=== PATIENT | female | born 1955 | race Caucasian/White ===

== ENCOUNTER 2024-10-01 09:13 | Inpatient (IN) | payer MEDICARE ==
[~2024-10-01] VITALS: Ht 162.6 cm; Wt 59.4 kg
--- NOTE | 2024-10-01 10:14 | ED.PDOC ---
GI ASSESSMENT HPI Comments 69-year-old female presents with a chief complaint of abdominal pain, vomiting, nausea, and diarrhea. Patient states that her pain is localized to her suprapubic abdomen region, nonradiating, describes as cramping, and rates her pain a 7/10. Patient mentions that she has been taking OTC remedies such as pedialyte, Tums, and Charcoal Pills, but states that none of them have helped alleviate her symptoms. Chief Complaint: Nausea/Vomiting Time Seen by MD: 10:07 Primary Care Provider: MANOLO Reviewed Notes: Medications, Allergies Allergies: Coded Allergies: Mercury (Verified Allergy, Unknown, 10/01/24) Information Source: Patient Mode of Arrival: Ambulatory Timing: Days Duration: Since onset Prehospital treatment: None Quality: Cramping Vomitus: Food Particles Stool: Watery, Brown Severity: Moderate Recent: None Recent Hx of: None Pain Location: Suprapubic Associated sign and symptoms: Nausea, Vomiting, Diarrhea, Abdominal Pain Past Medical History PAST MEDICAL HISTORY: Denies Surgical History: Denies all surgeries 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 Family History Family History: Reviewed,noncontributory to illness Social History Smoker: Non-Smoker Alcohol: Denies ETOH Use Drugs: Denies Drug Use Lives In: Home Constitutional: denies: chills, diaphoresis, fatigue, fever, malaise, sweats, weakness, others EENTM: denies: blurred vision, double vision, ear bleeding, ear discharge, ear drainage, ear pain, ear ringing, eye pain, eye redness, hearing loss, mouth pain, mouth swelling, nasal discharge, nose bleeding, nose congestion, nose pain, photophobia, tearing, throat pain, throat swelling, voice changes, others Respiratory: denies: cough, hemoptysis, orthopnea, SOB at rest, shortness of breath, SOB with excertion, stridor, wheezing, others Cardiovascular: denies: chest pain, dizzy spells, diaphoresis, Dyspnea on exertion, edema, irregular heart beat, left arm pain, lightheadedness, palpitations, PND, syncope, others Gastrointestinal: reports: abdominal pain, diarrhea, nausea, vomiting; denies: abdomen distended, blood streaked bowels, constipated, dysphagia, difficulty swallowing, hematemesis, melena, poor appetite, poor fluid intake, rectal bleeding, rectal pain, others Genitourinary: denies: abnormal vagina bleeding, burning, dyspareunia, dysuria, flank pain, frequency, hematuria, incontinence, pain, , vagina discharge, urgency, others Neurological: denies: dizziness, fainting, headache, left sided numbness, left sided weakness, numbness, paresthesia, pre-existing deficit, right sided numb ness, right sided weakness, seizure, speech problems, tingling, tremors, weakness, others Musculoskeletal: denies: back pain, gout, joint pain, joint swelling, muscle pain, muscle stiffness, neck pain, others Integumetry: denies: bruises, change in color, change in hair/nails, dryness, laceration, lesions, lumps, rash, wounds, others Allergic/Immunocompromised: denies: Difficulty Healing, Frequent Infections, Hives, Itching, others Hematologic/Lymphatic: denies: anemia, blood clots, easy bleeding, easy bruising, swollen glands, others Endocrine: denies: excessive hunger, excessive sweating, excessive thirst, excessive urination, flushing, intolerance to cold, intolerance to heat, unexplained weight gain, unexplained weight loss, others Psychiatric: denies: anxiety, bipolar disorder, depression, hopeless, panic disorder, schizophrenia, sleepless, suicidal, others All Other Systems: Reviewed and Negative Physical Exam General Appearance: No Apparent Distress, Normal HEENT: Normal ENT Inspection, Pharynx Normal, TMs Normal Neck: Full Range of Motion, Non-Tender, Normal, Normal Inspection Respiratory: Chest Non-Tender, Lungs Clear, No Accessory Muscle Use, No Respiratory Distress, Normal Breath Sounds Cardiovascular: No Edema, No JVD, No Murmur, No Gallop, Normal Peripheral Pulses, Regular Rate/Rhythm Breast Exam: Deferred Gastrointestinal: No Organomegaly, Non Tender, No Pulsatile Mass, Normal Bowel Sounds, Soft Genitalia: Deferred Pelvic: Deferred Rectal: Deferred Extremities: No calf tenderness, Normal capillary refill, Normal inspection, Normal range of motion, Non-tender, No pedal edema Musculoskeletal : Apperance: Normal Neurologic: Alert, 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 Was a procedure done?: No GI differential Dx Differential Diagnosis: Cholecystitis, Diverticular disease, Gastritis/PUD, Gastroenteritis, Pancreatitis, UTI, Dehydration, Electrolyte Imbalance, Viral, Mass X-Ray, Labs, Meds, VS Vital Signs Date Time Temp Pulse Resp B/P (MAP) Pulse Ox O2 Delivery O2 Flow Rate FiO2 10/01/24 13:05 97.9 75 20 150/85 (106) 95 97.9 10/01/24 09:23 97.9 91 18 144/90 (108) 97 97.9 Lab Test 10/01/24 10:15 10/01/24 09:25 Range/Units White Blood Count 6.4 4.4-10.8 10^3/uL Red Blood Count 4.59 4.0-5.20 10^6/uL Hemoglobin 13.7 12.2-16.2 g/dL Hematocrit 40.9 36.0-46.0 % Mean Corpuscular Volume 89.2 80.0-100.0 fL Mean Corpuscular Hemoglobin 29.9 28.0-32.0 pg Mean Corpuscular Hemoglobin Concent 33.6 32.0-36.0 g/dL Red Cell Distribution Width 13.7 11.8-14.3 % Platelet Count 235 140-450 10^3/uL Mean Platelet Volume 8.4 6.9-10.8 fL Neutrophils (%) (Auto) 63.6 37.0-80.0 % Lymphocytes (%) (Auto) 27.8 10.0-50.0 % Monocytes (%) (Auto) 6.4 0.0-12.0 % Eosinophils (%) (Auto) 1.5 0.0-7.0 % Basophils (%) (Auto) 0.7 0.0-2.0 % Neutrophils # (Auto) 4.1 1.6-8.6 10 ^3/uL Lymphocytes # (Auto) 1.8 0.4-5.4 10 ^3/uL Monocytes # (Auto) 0.4 0-1.3 10 ^3/uL Eosinophils # (Auto) 0.1 0-0.8 10 ^3/uL Basophils # (Auto) 0 0-0.2 10 ^3/uL Nucleated Red Blood Cells 0.1 % Sodium Level 142 136-145 mmol/L Potassium Level 3.5 3.5-5.1 mmol/L Chloride Level 102 98-107 mmol/L Carbon Dioxide Level 32 H 20-31 mmol/L Anion Gap 8 5-15 Blood Urea Nitrogen 8 L 9-23 mg/dL Creatinine 0.75 0.550-1.02 mg/dL Glomerular Filtration Rate Calc 85 >90 mL/min BUN/Creatinine Ratio 10.7 10.0-20.0 Serum Glucose 147 H 74-106 mg/dL Calcium Level 10.3 8.7-10.4 mg/dL Troponin I High Sensitivity < 3 L </=34 ng/L Urine Color Yellow Yellow Urine Clarity Clear Clear Urine pH 6.0 5.0-9.0 Urine Specific [place] 1.019 1.001-1.035 Urine Protein Negative Negative Urine Ketones Negative Negative Urine Blood Negative Negative /uL Urine Nitrite Negative Negative Urine Bilirubin Negative Negative Urine Urobilinogen Normal Negative mg/dL Urine Leukocyte Esterase Negative Negative /uL Urine RBC 1 0 - 4 /hpf Urine Microscopic WBC 3 0-5 /HPF Urine Squamous Epithelial Cells Few <5 /hpf Urine Bacteria None seen None Seen /hpf Urine Mucus Few None Seen Urine Glucose Normal Normal mg/dL Current Medications Medications (Trade) Dose Ordered Sig/Jeannette Route Start Time Stop Time Status Last Admin Sodium Chloride 1,000 ml @ 1,000 mls/hr Q1H ONCE IV 10/01/24 10:15 10/01/24 11:14 DC 10/01/24 10:25 Ondansetron HCl (Zofran) 4 mg ONCE ONCE IV 10/01/24 10:15 10/01/24 10:16 DC 10/01/24 10:25 Famotidine (Pepcid Injection) 20 mg ONCE ONCE IV 10/01/24 10:15 10/01/24 10:16 DC 10/01/24 10:25 Time of 1ST Reevaluation: 10:37 Reevaluation 1ST: Unchanged Patient Education/Counseling: Diagnosis, Treatment Family Education/Counseling: No Family Present SEPSIS Sepsis Screen Date sepsis recognized/suspect: Oct 01, 2024 Time Sepsis recognized/suspect: 922 Recent Procedure: No On Antibiotic Therapy: No Respiratory Rate >20: No Heart Rate >90: Yes Temp<36 C (96.8 F) or >38.3 C: No SBP <90 or MAP <65 mmHG: No New Acute Mental Status Change: No Is the patient on CPAP, BIPAP,: No Physician Orders Ct Ab Pel With Iv Con Only (10/01/24 11:00) Vital Signs Date Time Temp Pulse Resp B/P (MAP) Pulse Ox O2 Delivery O2 Flow Rate FiO2 10/01/24 13:05 97.9 75 20 150/85 (106) 95 97.9 10/01/24 09:23 97.9 91 18 144/90 (108) 97 97.9 Laboratory Tests Test 10/01/24 10:15 White Blood Count 6.4 10^3/uL (4.4-10.8) Medications Medications Dose Ordered Sig/Jeannette Route Start Time Stop Time Status Last Admin Dose Admin Famotidine 20 mg ONCE ONCE IV 10/01/24 10:15 10/01/24 10:16 DC 10/01/24 10:25 Ondansetron HCl 4 mg ONCE ONCE IV 10/01/24 10:15 10/01/24 10:16 DC 10/01/24 10:25 Sodium Chloride 1,000 ml @ 1,000 mls/hr Q1H ONCE IV 10/01/24 10:15 10/01/24 11:14 DC 10/01/24 10:25 Departure 1 Departure Time of Disposition: 14:05 (Patient presented with abdominal pain that was concerning for possible appendicits, gastritis, cholecystitis, colitis, gastroenteritis, sbo, or orther possible surgical emergency. Data: 1. I ordered and reviewed the result of at least 3 labs including a CBC, BMP, and Urinalysis. 2. I independently interpreted the following tests: CT Abdoment and Pelvis is concerning for intra-abdominal mass .Risk:This patient has a high risk of morbidity due to further diagnostic testing or treatment and may suffer from an acute abdominal process disorder. Workup reveals abdominal mass as well as intractable nausea and vomiting l and patient should be admitted for further workup. and possible expert consultation. ) Impression: Primary Impression: Intractable abdominal pain Additional Impressions: Abdominal mass Qualified Codes: R19.07 - Generalized intra-abdominal and pelvic swelling, mass and lump Projectile vomiting with nausea Disposition: ADMITTED INPATIENT Admit to: Med Surg Condition: Serious Critical Care Note Critical Care Time?: No Stability Stability form required: No Heart Score Heart Score: Heart Score Response (Comments) Value History N/A 0 EKG N/A 0 Age N/A 0 Risk Factors N/A 0 Troponin N/A 0 Total 0 I personally scribed for LYNDA GEORGE MD ([email or web address]) on 10/01/24 at 10:13. Electronically submitted by Fabio Arndt ([email or web address]). LYNDA GEORGE MD Oct 01, 2024 10:13
[2024-10-01] MEDS: SODIUM CHLORIDE 0.9% 1,000 ML IV ONE (10:25)
[2024-10-01] MEDS: FAMOTIDINE (10MG/ML) 2ML VL IV ONE (10:25)
[2024-10-01] MEDS: ONDANSETRON HCL 4 MG/2 ML VIAL IV ONE (10:25)
[2024-10-01 10:39] LABS: Hematocrit 40.9 % (36.0-46.0); Hemoglobin 13.7 g/dL (12.2-16.2); Mean Corpuscular Hemoglobin 29.9 pg (28.0-32.0); Mean Corpuscular Volume 89.2 fL (80.0-100.0); Nucleated Red Blood Cells % 0.1 %
[2024-10-01 10:40] LABS: Anion Gap 8 (5-15); Carbon Dioxide 32 mmol/L (20-31); Chloride 102 mmol/L (98-107); Potassium 3.5 mmol/L (3.5-5.1); Sodium 142 mmol/L (136-145)
[2024-10-01 10:41] LABS: Calcium 10.3 mg/dL (8.7-10.4)
[2024-10-01 10:46] LABS: BUN/Creatinine Ratio 10.7 (10.0-20.0)
[2024-10-01 10:47] LABS: Urine Protein, UAD Negative (Negative)
[2024-10-01 10:47] LABS: Blood Urea Nitrogen 8 mg/dL (9-23); Glucose 147 mg/dL (74-106)
[2024-10-01] MEDS: IOHEXOL 300 MG/ML 100ML BOTTLE IJ ONE (11:20)
--- NOTE | 2024-10-01 12:58 | DVH ---
EXAM: CT CT AB PEL WITH IV CON ONLY HISTORY: lower abdominal pain COMPARISON: None TECHNIQUE: Helical CT images of the abdomen and pelvis were performed with 100 mL omnipaque 300 IV c ontrast. Sagittal and coronal reformatted images were obtained. This CT exam was performed using 1 or more of the following dose reduction techniques: Automated exposure control, adjustment of the mA an d/or kv according to patient size, or the use of iterative reconstruction techniques. Radiation Dose Information: CT Dose: CTDI volume is 5.75 mGy. Dose-length product is 314.36 mGy*cm FINDINGS: CT abdomen: The lung bases are clear. The heart is not enlarged. The gallbladder is surgically absent . The liver, spleen, pancreas, kidneys, and adrenal glands are unremarkable. No abdominal aortic aneu rysm or dissection. There are multiple enlarged periaortic retroperitoneal lymph nodes, the largest o f which measures 1.9 x 1.3 cm to the left of the abdominal aorta (image 37, series 2). CT pelvis: No abnormal bowel dilatation or free air. There is trace free fluid in the. There is wall thickening of the transverse colon, descending colon, sigmoid colon, and rectum. There are postoper ative changes resection of the ascending colon and appendix. There is right mid mesenteric partially calcified lobulated mass measuring 5.8 cm transverse x 2.9 cm AP x 6 cm longitudinal (image 39, serie s 2; images 24-32, series 601). There are multiple adjacent enlarged mesenteric lymph nodes. The urin gerardo bladder are unremarkable. IMPRESSION: 1. Postoperative changes of cholecystectomy and ascending colectomy. 2. Lobulated partially calcified 6 cm right mid mesenteric mass with adjacent mesenteric lymphadenopa thy. This appearance may be due to carcinoid tumor or desmoid tumor. Recommend surgical consultation . 3. Moody colitis. 4. Periaortic retroperitoneal lymphadenopathy may be reactive or metastatic in nature. 5. No evidence of bowel obstruction or other acute process in the abdomen or pelvis.
[2024-10-01 13:05] VITALS: BP 150/85; PULSE 75; RESP 20; TEMP 97.9; O2SAT 95
[2024-10-01] MEDS ORDERED: PIPERACILLIN-TAZOB 3.375GM 100 ML IV ONE (18:30)
[2024-10-01] MEDS ORDERED: LACTATED RINGER'S 1,000 ML IV ONE (18:30)
[2024-10-01] MEDS ORDERED: HYDROcodone-ACET 5/325MG TAB PO PRN (18:30)
[2024-10-01] MEDS ORDERED: ACETAMINOPHEN IV 1000 MG/100ML (10MG/ML) IV PRN (18:30)
[2024-10-01] MEDS ORDERED: ONDANSETRON HCL 4 MG/2 ML VIAL IV PRN (18:30)
--- NOTE | 2024-10-01 18:37 | DVHHP2 ---
Admitting Diagnosis: n/v History of Present Illness 69-year-old female presents with a chief complaint of abdominal pain, vomiting, nausea, and diarrhea. Patient states that her pain is localized to her suprapub ic abdomen region, nonradiating, describes as cramping, and rates her pain a 7/10. Patient mentions that she has been taking OTC remedies such as pedialyte, Tums, and Charcoal Pills, but states that none of them have helped alleviate her symptoms. 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 woman, sitting in bed. HEENT: AT/NC Heart: RRR Lung: CTA b/l Abd: soft, non-tender, non-distended Msk: no edema or cyanosis Neuro: Aox3, no focal deficit SEPSIS Sepsis Screen Date sepsis recognized/suspect: Oct 01, 2024 Time Sepsis recognized/suspect: 922 Recent Procedure: No On Antibiotic Therapy: No Respiratory Rate >20: No Heart Rate >90: Yes Temp<36 C (96.8 F) or >38.3 C: No SBP <90 or MAP <65 mmHG: No New Acute Mental Status Change: No Is the patient on CPAP, BIPAP,: No Physician Orders Ct Ab Pel With Iv Con Only (10/01/24 11:00) * Surgical Consult (10/01/24 ) Vital Signs Date Time Temp Pulse Resp B/P (MAP) Pulse Ox O2 Delivery O2 Flow Rate FiO2 10/01/24 13:05 97.9 75 20 150/85 (106) 95 97.9 10/01/24 09:23 97.9 91 18 144/90 (108) 97 97.9 Laboratory Tests Test 10/01/24 10:15 White Blood Count 6.4 10^3/uL (4.4-10.8) Medications Medications Dose Ordered Sig/Jeannette Route Start Time Stop Time Status Last Admin Dose Admin Famotidine 20 mg ONCE ONCE IV 10/01/24 10:15 10/01/24 10:16 DC 10/01/24 10:25 Ondansetron HCl 4 mg ONCE ONCE IV 10/01/24 10:15 10/01/24 10:16 DC 10/01/24 10:25 Sodium Chloride 1,000 ml @ 1,000 mls/hr Q1H ONCE IV 10/01/24 10:15 10/01/24 11:14 DC 10/01/24 10:25 Results Labs Test 10/01/24 10:15 10/01/24 09:25 Range/Units White Blood Count 6.4 4.4-10.8 10^3/uL Red Blood Count 4.59 4.0-5.20 10^6/uL Hemoglobin 13.7 12.2-16.2 g/dL Hematocrit 40.9 36.0-46.0 % Mean Corpuscular Volume 89.2 80.0-100.0 fL Mean Corpuscular Hemoglobin 29.9 28.0-32.0 pg Mean Corpuscular Hemoglobin Concent 33.6 32.0-36.0 g/dL Red Cell Distribution Width 13.7 11.8-14.3 % Platelet Count 235 140-450 10^3/uL Mean Platelet Volume 8.4 6.9-10.8 fL Neutrophils (%) (Auto) 63.6 37.0-80.0 % Lymphocytes (%) (Auto) 27.8 10.0-50.0 % Monocytes (%) (Auto) 6.4 0.0-12.0 % Eosinophils (%) (Auto) 1.5 0.0-7.0 % Basophils (%) (Auto) 0.7 0.0-2.0 % Neutrophils # (Auto) 4.1 1.6-8.6 10 ^3/uL Lymphocytes # (Auto) 1.8 0.4-5.4 10 ^3/uL Monocytes # (Auto) 0.4 0-1.3 10 ^3/uL Eosinophils # (Auto) 0.1 0-0.8 10 ^3/uL Basophils # (Auto) 0 0-0.2 10 ^3/uL Nucleated Red Blood Cells 0.1 % Sodium Level 142 136-145 mmol/L Potassium Level 3.5 3.5-5.1 mmol/L Chloride Level 102 98-107 mmol/L Carbon Dioxide Level 32 H 20-31 mmol/L Anion Gap 8 5-15 Blood Urea Nitrogen 8 L 9-23 mg/dL Creatinine 0.75 0.550-1.02 mg/dL Glomerular Filtration Rate Calc 85 >90 mL/min BUN/Creatinine Ratio 10.7 10.0-20.0 Serum Glucose 147 H 74-106 mg/dL Calcium Level 10.3 8.7-10.4 mg/dL Troponin I High Sensitivity < 3 L </=34 ng/L Urine Color Yellow Yellow Urine Clarity Clear Clear Urine pH 6.0 5.0-9.0 Urine Specific [place] 1.019 1.001-1.035 Urine Protein Negative Negative Urine Ketones Negative Negative Urine Blood Negative Negative /uL Urine Nitrite Negative Negative Urine Bilirubin Negative Negative Urine Urobilinogen Normal Negative mg/dL Urine Leukocyte Esterase Negative Negative /uL Urine RBC 1 0 - 4 /hpf Urine Microscopic WBC 3 0-5 /HPF Urine Squamous Epithelial Cells Few <5 /hpf Urine Bacteria None seen None Seen /hpf Urine Mucus Few None Seen Urine Glucose Normal Normal mg/dL Primary Diagnosis Abdominal mass Pancolitis Nausea and vomiting Plan Received within normal range CT scan shows abdominal mass and colitis Surgery consult in ED IV fluids NPO Antibiotics Zosyn for broad-spectrum antibiotics Antiemetic Follow the blood culture SCD for DVT prophylaxis Full code PPI for GI prophylaxis Plan discussed with: Patient Problems List: (1) Abdominal mass Status: Acute (2) Intractable abdominal pain Status: Acute Date of Service: Oct 01, 2024 Billing Provider: BHARAT LAYTON MD Common Visit Codes: [id number] INP/OBS CARE (MOD) BHARAT LAYTON MD Oct 01, 2024 18:37
[2024-10-01] MEDS ORDERED: SODIUM CHLOR 0.9% PF (SALINE LOCK) 10ML VIAL/SYR IV SCH (22:00)
[2024-10-02] MEDS ORDERED: PANTOPRAZOLE 40 MG/10 ML VIAL INJ IV SCH (10:00)
== END 2024-10-01 18:53 | disposition left against medical advice (07) | DRG 392 ==
LOC: ER 09:13 → OVERFLOW 18:30
PROVIDERS: ADMIT Internal Medicine; ATTEND Internal Medicine
DX: K52.9 Noninfective gastroenteritis and colitis, unspecified (principal); R19.00 Intra-abdominal and pelvic swelling, mass and lump, unspecified site; Z53.29 Procedure and treatment not carried out because of patient's decision for other reasons; Z91.048 Other nonmedicinal substance allergy status; Z79.899 Other long term (current) drug therapy
CPT/HCPCS: 36415; 74177; 80048; 81001; 84484; 85025; 96361; 96374; 96375; G0378; J2405; J3490